=== PATIENT | male | born 1960 | race Caucasian/White ===

== ENCOUNTER 2018-10-16 15:46 | Emergency (ER) | payer SELFPAY ==
[~2018-10-16] VITALS: Ht 175.3 cm; Wt 75.0 kg
[2018-10-16] MEDS ORDERED: IBUP-2070 PO (17:04)
[2018-10-16] MEDS ORDERED: LISI-661 PO (17:04)
[2018-10-16 20:00] VITALS: BP 159/90
== END 2018-10-16 20:20 | disposition home or self-care (01) ==
LOC: EMS 15:47
DX: E86.0 Dehydration (principal); G89.29 Other chronic pain; M25.562 Pain in left knee; I10 Essential (primary) hypertension

== ENCOUNTER 2024-02-04 16:46 | Emergency (ER) | payer OTHER, MEDICARE ==
[~2024-02-04] VITALS: Ht 175.3 cm; Wt 85.0 kg
[~2024-02-04 16:46] MED LIST: IBUP-1492 PO; LISI-893 PO
[2024-02-04 17:10] VITALS: TEMP 98
[2024-02-04 20:29] VITALS: BP 127/44; PULSE 94; RESP 18
[2024-02-04] MEDS: HYDROCODONE/ACETAMINOPHEN 5-325 MG TABLET PO ONE (20:36)
[2024-02-04] MEDS ORDERED: CEPH-558 PO (20:40)
[2024-02-04] MEDS ORDERED: DOXY-354 PO (20:41)
[2024-02-04] MEDS ORDERED: IBUP-1492 PO (20:41)
[2024-02-04] MEDS: OFLOXACIN 0.3% 5 ML OPHTHALMIC SOLUTION OD ONE (21:18)
== END 2024-02-04 22:22 | disposition home or self-care (01) ==
LOC: EMS 16:46
DX: S70.01XA Contusion of right hip, initial encounter (principal); L03.114 Cellulitis of left upper limb; H10.9 Unspecified conjunctivitis; I10 Essential (primary) hypertension; Z96.649 Presence of unspecified artificial hip joint; Z96.659 Presence of unspecified artificial knee joint; W18.2XXA Fall in (into) shower or empty bathtub, initial encounter; Y93.89 Activity, other specified; Y92.89 Other specified places as the place of occurrence of the external cause; Y99.8 Other external cause status
CPT/HCPCS: 73502; 99283

== ENCOUNTER 2024-02-18 14:41 | Emergency (ER) | payer MEDICARE, OTHER ==
[~2024-02-18] VITALS: Ht 175.3 cm; Wt 85.0 kg
[~2024-02-18 14:41] MED LIST changes: +CEPH-558 PO; +DOXY-354 PO
[2024-02-18 14:44] VITALS: BP 137/51; PULSE 105; RESP 18; TEMP 97.9
[2024-02-18 16:59] LABS: BASOPHILS % (AUTO) 0.9 % (0.0-2.0); EOSINOPHILS % (AUTO) 1.9 % (1.0-6.0); HEMATOCRIT 41.6 % (41-53); HEMOGLOBIN 14.1 g/dL (13.5-17.5); LYMPHOCYTES # (AUTO) 1.4 K/uL (1.0-4.8); LYMPHOCYTES % (AUTO) 23.3 % (22.0-44.0); MEAN CORPUSCULAR HEMOGLOBIN 30.9 pg (26.0-34.0); MEAN CORPUSCULAR HGB CONC 33.8 G/dL (31.0-37.0); MEAN CORPUSCULAR VOLUME 92 fL (80-100); MONOCYTES # (AUTO) 0.5 K/uL (0.1-1.0); MONOCYTES % (AUTO) 7.4 % (2.0-9.0); NEUTROPHILS # (AUTO) 4.1 K/uL (1.8-7.7); NEUTROPHILS % (AUTO) 66.5 % (40.0-70.0); PLATELET COUNT (AUTO) 333 K/uL (150-450); RED BLOOD CELL COUNT(AUTO) 4.54 MIL/uL (4.50-5.90); RED CELL DISTRIBUTION WIDTH 14.8 % (11.5-14.5); WHITE BLOOD COUNT (AUTO) 6.2 K/uL (4.5-11.0)
[2024-02-18 17:17] LABS: ANION GAP 10 mmol/L (8-16); CALCIUM, TOTAL 8.9 mg/dL (8.8-10.5); CARBON DIOXIDE 27 mmol/L (22-29); CHLORIDE 103 mmol/L (98-107); CREATININE 1.09 mg/dL (0.60-1.30); GLOMERULAR FILTR. RATE CALC > 60 mL/min (>60); GLUCOSE,RANDOM 96 mg/dL (70-110); POTASSIUM 3.3 mmol/L (3.5-5.1); SODIUM SERUM 140 mmol/L (136-145); UREA NITROGEN, BLOOD 16 mg/dL (7-18)
[2024-02-18 17:22] LABS: ALANINE AMINOTRANSFERASE 28 U/L (12-78); ALKALINE PHOSPHATASE 135 U/L (46-116); ASPARTATE AMINOTRANSFERASE 22 U/L (15-37); BILIRUBIN,TOTAL 1.1 mg/dL (0.1-1.0); TOTAL PROTEIN, SERUM 8.2 g/dL (6.4-8.2)
[2024-02-18] MEDS ORDERED: CIPR500T10 PO (18:00)
== END 2024-02-18 18:05 | disposition home or self-care (01) ==
LOC: EMS 15:18
DX: N41.9 Inflammatory disease of prostate, unspecified (principal); E87.6 Hypokalemia; I10 Essential (primary) hypertension; Z96.649 Presence of unspecified artificial hip joint; Z96.659 Presence of unspecified artificial knee joint
CPT/HCPCS: 80053; 85025; 99283